=== PATIENT | female | born 1940 | race American Indian/Alaskan Native ===

== ENCOUNTER → 2016-08-18 | Outpatient (CLI) | payer OTHER ==
--- NOTE | 2016-08-18 17:14 | MA ---
Screening Digital Mammogram, With Tomosynthesis and iCAD August 18, 2016 Indication: Routine screening. History of right breast cancer with mastectomy in 2001. Technique: Standard digital CC projections were obtained of the left breast. Digital breast tomosyn thesis was performed in the MLO projection, with reconstruction at 1.0-mm slice thickness. Composite MLO views were reconstructed. This examination [facility] s [employer]. Comparison: December 2014, July 2011, and June 2010. Breast Density: Type B. Findings: CAD was reviewed. No suspicious microcalcifications, mass, or architectural distortion. Impression: Negative right mammogram. BI-RADS 1. Recommendation: Routine screening is recommended in one year. [facility] will send a result letter to the patient. Negative mammography should not preclude additional workup of a clinically suspicious finding. The patient's information is entered into a reminder system with a target due date for her next mammo gram.
== END ==
LOC: FIMAGING 12:13
DX: Z12.31 Encounter for screening mammogram for malignant neoplasm of breast (principal); Z85.3 Personal history of malignant neoplasm of breast
CPT/HCPCS: G0202-52

== ENCOUNTER 2017-05-28 16:52 | Inpatient (IN) | payer OTHER ==
--- NOTE | 2017-05-28 17:36 | CPEKG ---
Heart Rate: 102 RR Interval: 588 QRSD Interval: 90 QT Interval: 340 QTC Interval: 443 QRS [place]: 169 T Wave [place]: 69 EKG Severity - ABNORMAL ECG - EKG Impression: ATRIAL FIBRILLATION, V-RATE 80-147 EKG Impression: PROBABLE ANTEROSEPTAL INFARCT, AGE INDETERM Electronically Signed By: Jo-Ann Clolins 28-May-2017 21:12:31
--- NOTE | 2017-05-28 17:39 | EDPHY ---
H & P Time Seen by Provider: 05/28/17 17:23 HPI/ROS: CHIEF COMPLAINT: Fever, "not taking care of herself" HISTORY OF PRESENT ILLNESS: Patient is a 76-year-old female with a history of atrial fibrillation, diabetes and COPD who presents to the emergency department with fatigue and fever. The patient's boyfriend is giving much of the history. He states that she was well last Tuesday. He has been busy at work so he has not seen her for few days. They went to dinner on Tuesday night and she states she was "out of it." The next morning ()the patient had a stress test. She was noted to have a fever 101.2 but they continue with the test. That night the patient called boyfriend. She was not feeling well. She was fatigued with mild shortness of breath. She had a temperature to 103.2. She had mildly upset stomach but no vomiting. She took aspirin and her symptoms mildly improved. Today she was too sick to get out of bed. REVIEW OF SYSTEMS: My complete review of systems is negative except as mentioned in the HPI. Past Medical/Surgical History: Atrial fibrillation, COPD, diabetes, COPD, obesity, chronic respiratory failure Smoking Status: Never smoked Physical Exam: 36.4, 77/61, 93, 18, 94% on room air. Repeat blood pressure when I came into the room was 88/57 GENERAL: Patient is sleepy appearing. She wakes answer my questions. No acute distress. HEENT: Eyes normal to inspection, normal pharynx, no signs of dehydration. NECK: No thyromegaly, no lymphadenopathy, supple. RESPIRATORY: Clear to auscultation bilaterally, no rales, rhonchi or wheezing. CVS: Regular rate and rhythm, no rubs, murmurs, or gallops. ABDOMEN: Soft, nontender, nondistended, no organomegaly. BACK: Normal to inspection, no CVA tenderness. SKIN: Normal color, no rash, warm, dry. No pallor. EXTREMITIES: No pedal edema, no calf tenderness, no Homans sign or cords, no joint swelling. NEURO/PSYCH: The patient is sleepy but awakes to voice. Answers questions appropriately. Oriented. Normal mood and affect, normal motor sensory exam. No obvious cranial nerve deficit. Constitutional: Initial Vital Signs Temperature (C) 36.4 C 05/28/17 16:56 Heart Rate 93 05/28/17 16:56 Respiratory Rate 18 05/28/17 16:56 Blood Pressure 77/61 L 05/28/17 16:56 O2 Sat (%) 94 05/28/17 16:56 O2 Delivery Mode Nasal Cannula O2 (L/minute) 3 Allergies/Adverse Reactions: Beta-Blockers (Beta-Adrenergic Bloc Allergy (Verified 05/28/17 17:00) ANIMAL DANDER Allergy (Uncoded 10/18/13 17:13) OATS Allergy (Uncoded 10/18/13 17:13) SMOKE Allergy (Uncoded 10/18/13 17:13) Home Medications: Medication Instructions Recorded Albuterol [Proventil Inhaler] 2 puffs IH Q2 PRN 10/19/13 Furosemide [Lasix 20 MG (RX)] 20 mg PO DAILY 10/19/13 Losartan Potassium [Cozaar] 100 mg PO DAILY 10/19/13 Montelukast Sodium [Singulair 10 10 mg PO DAILY@1800 PRN 10/19/13 mg (RX)] metFORMIN HCL [Glucophage] 500 mg PO DAILY 10/19/13 Apixaban [Eliquis] 5 mg PO BID 05/28/17 Aspirin EC [Aspirin EC 81 mg (*)] 81 mg PO DAILY 05/28/17 Fluticasone/Vilanterol [Breo 1 puffs IN DAILY 05/28/17 Ellipta 100-25 Mcg INH] Hydralazine HCl [Hydralazine HCl] 100 mg PO TID 05/28/17 Levothyroxine Sodium 88 mcg PO DAILY 05/28/17 [Levothyroxine Sodium] Metoprolol Succinate [Metoprolol 150 mg PO DAILY 05/28/17 Succinate] Potassium Chloride [Potassium 20 meq PO DAILY 05/28/17 Chloride] Medical Decision Making - Diagnostics Imaging Results: Imaging Impressions Chest X-Ray 05/28/17 17:47 Impression: Cardiomegaly, without evidence of congestive heart failure or a focal infiltrate. Head CT 05/28/17 18:54 Impression: Senescent features, with no acute abnormality identified on this unenhanced CT evaluation. If there is further clinical concern regarding the patient's symptoms, MR imaging is suggested, if not otherwise contraindicated. Findings were discussed with IVAN MONTAGUE MD at 20:52, on 05/28/2017. Abdomen Ultrasound 05/28/17 19:16 Impression: 1. Fatty infiltration of the pancreas. 2. Gallbladder sludge, with no convincing evidence of cholelithiasis. There is no cholecystitis or bile duct dilatation. Findings were discussed with IVAN MONTAGUE MD at 20:59, on 05/28/2017. ED Course/Re-evaluation: In the emergency department I discussed possible etiologies with the patient. I answered all her questions. IV was placed. Laboratory studies were ordered. Chest x-ray and EKG was ordered. Patient was given normal saline 1,000 ml IV. I reviewed patient's previous record Atrial fibrillation at 102. Normal axis. Flipped T waves V1-V3 Patient's sodium was low 130. This is down from 139 in 2013. Patient's creatinine is elevated at 2.1. Mildly elevated total bilirubin at 3.1. Conjugated bilirubin elevated 2.5. AST and ALT mildly elevated at 69 and 77. Lipase normal. Lactic acid is 1.9. CXR: Cardiomegaly. No focal infiltrate. 1899: I rechecked the patient. She stated she had no shortness of breath chest pain. No abdominal pain. On repeat exam she had no right upper quadrant tenderness palpation. I discussed the need for urine sample with nursing staff. The patient states that she is able to give a urine sample. Head CT. 1914: 113/63, 90 I discussed the case with Dr. Henderson who will admit the patient. I also ordered a right upper quadrant ultrasound. He also recommended procalcitonin I discussed the case with Dr. Henderson. He document severe sepsis. He ordered NS 30 ml/kg, zosyn. I added repeat LA. 2054: Right upper quadrant ultrasound: Please refer the dictated report by Dr. Jensen. The gallbladder appears normal. There is no gallstones or sludge. The wall is normal. There is no thickened common bile duct. 2054: CT of the head: Please refer the dictated report by Dr. Jensen. I discussed the case with him. No acute disease noted. 2100: I discussed these findings with Dr. Henderson. Differential Diagnosis: My differential includes but is not limited to bacteremia, sepsis, chronic respiratory failure, pneumonia, bronchitis colectomy, sugar abnormality, urinary tract infection Critical Care Time: Patient required 35 minutes of critical care time. This was exclusive of any unbundled procedure. This was due to her altered mental status, hypotension, need for frequent rechecks, consultation with Radiology and Internal Medicine. - Data Points Laboratory Results: Laboratory Results 05/28/17 17:25 05/28/17 17:25 05/28/17 05/28/17 05/28/17 19:30 19:00 17:25 WBC RBC Hgb Hct MCV MCH MCHC RDW Plt Count MPV Neut % (Auto) Lymph % (Auto) [place] % (Auto) Eos % (Auto) Baso % (Auto) Nucleat RBC Rel Count Absolute Neuts (auto) Absolute Lymphs (auto) Absolute Monos (auto) Absolute Eos (auto) Absolute Basos (auto) Absolute Nucleated RBC Immature Gran % Seg Neutrophils % Band Neutrophils % Lymphocytes % Monocytes % Metamyelocytes % Myelocytes % Immature Gran # Absolute Seg Neuts Absolute Band Neuts Absolute Lymphocytes Absolute Monocytes Absolute Metamyelocyte Absolute Myelocytes RBC/WBC/PLT Morphology Toxic Vacuolation Platelet Estimate Smear Review By PT INR APTT VBG Lactic Acid Sodium 130 mEq/L L mEq/L (134-144) Potassium 3.4 mEq/L L mEq/L (3.5-5.2) Chloride 91 mEq/L L mEq/L (97-110) Carbon Dioxide 24 mEq/l mEq/l (22-31) Anion Gap 15 mEq/L mEq/L (8-16) BUN 63 mg/dL H mg/dL (7-23) Creatinine 2.1 mg/dL H mg/dL (0.6-1.0) Estimated GFR 23 Glucose 112 mg/dL H mg/dL (70-100) Calcium 8.7 mg/dL mg/dL (8.5-10.4) Total Bilirubin 3.1 mg/dL H mg/dL (0.1-1.4) Conjugated Bilirubin 2.5 mg/dL H mg/dL (0.0-0.5) Unconjugated Bilirubin 0.6 mg/dL mg/dL (0.0-1.1) AST 69 IU/L H IU/L (14-46) ALT 77 IU/L H IU/L (9-52) Alkaline Phosphatase 124 IU/L IU/L (38-126) Total Protein 5.9 g/dL L g/dL (6.3-8.2) Albumin 3.3 g/dL L g/dL (3.5-5.0) Lipase 55 IU/L IU/L (23-300) Procalcitonin 29.66 ng/mL H ng/mL (0.02-0.10) Urine Color REJ Urine Appearance TNP Urine pH TNP Ur Specific [place] TNP Urine Protein TNP Urine Ketones TNP Urine Blood TNP Urine Nitrate TNP Urine Bilirubin TNP Urine Urobilinogen TNP Ur Leukocyte Esterase TNP Urine Glucose TNP 05/28/17 05/28/17 05/28/17 17:25 17:25 17:25 WBC 6.99 10^3/uL 10^3/uL (3.80-9.50) RBC 4.52 10^6/uL 10^6/uL (4.18-5.33) Hgb 14.6 g/dL g/dL (12.6-16.3) Hct 39.6 % % (38.0-47.0) MCV 87.6 fL fL (81.5-99.8) MCH 32.3 pg pg (27.9-34.1) MCHC 36.9 g/dL H g/dL (32.4-36.7) RDW 14.7 % % (11.5-15.2) Plt Count 80 10^3/uL L 10^3/uL (150-400) MPV 13.3 fL H fL (8.7-11.7) Neut % (Auto) Not Reported Lymph % (Auto) Not Reported [place] % (Auto) Not Reported Eos % (Auto) Not Reported Baso % (Auto) Not Reported Nucleat RBC Rel Count 0.0 % % (0.0-0.2) Absolute Neuts (auto) Not Reported Absolute Lymphs (auto) Not Reported Absolute Monos (auto) Not Reported Absolute Eos (auto) Not Reported Absolute Basos (auto) Not Reported Absolute Nucleated RBC 0.00 10^3/uL 10^3/uL (0-0.01) Immature Gran % Not Reported Seg Neutrophils % 22 % % Band Neutrophils % 65 % % Lymphocytes % 6 % % Monocytes % 1 % % Metamyelocytes % 4 % % Myelocytes % 2 % % Immature Gran # Not Reported Absolute Seg Neuts 1.54 10^/uL L 10^/uL (1.70-6.50) Absolute Band Neuts 4.54 10^3/uL H 10^3/uL (0.00-0.70) Absolute Lymphocytes 0.42 10^3/uL L 10^3/uL (1.00-3.00) Absolute Monocytes 0.07 10^3/uL L 10^3/uL (0.30-0.80) Absolute Metamyelocyte 0.28 10^3/mL H 10^3/mL (0.00-0.00) Absolute Myelocytes 0.14 10^3/mL H 10^3/mL (0.00-0.00) RBC/WBC/PLT Morphology NORMAL (NORMAL) Toxic Vacuolation PRESENT H Platelet Estimate DECREASED L (ADEQ) Smear Review By Pending PT 19.2 SEC H SEC (12.0-15.0) INR 1.61 H (0.83-1.16) APTT 37.6 SEC SEC (23.0-38.0) VBG Lactic Acid 1.9 mmol/L mmol/L (0.7-2.1) Sodium Potassium Chloride Carbon Dioxide Anion Gap BUN Creatinine Estimated GFR Glucose Calcium Total Bilirubin Conjugated Bilirubin Unconjugated Bilirubin AST ALT Alkaline Phosphatase Total Protein Albumin Lipase Procalcitonin Urine Color Urine Appearance Urine pH Ur Specific [place] Urine Protein Urine Ketones Urine Blood Urine Nitrate Urine Bilirubin Urine Urobilinogen Ur Leukocyte Esterase Urine Glucose Medications Given: Discontinued Medications Sodium Chloride (Ns) 1,000 mls @ 0 mls/hr IV ONCE ONE PRN Reason: Wide Open Stop: 05/28/17 17:49 Last Admin: 05/28/17 17:56 Dose: 1,000 mls Departure - Departure Disposition: [facility] Inpatient Acute Clinical Impression: Renal insufficiency, Hyponatremia, Severe sepsis Fever Qualifiers: Fever type: unspecified Qualified Code(s): R50.9 - Fever, unspecified Condition: Good
[2017-05-28] MEDS ORDERED: NS 1,000 ML IV ONE (17:48)
[2017-05-28 18:08] LABS: PLATELET COUNT 80 10^3/uL (150-400)
[2017-05-28 18:29] LABS: INR 1.61 (0.83-1.16); PROTIME(PATIENT) 19.2 SEC (12.0-15.0)
[2017-05-28] MEDS ORDERED: FUROSEMIDE 40 MG/4 ML VIAL IVP ONE (20:40)
[2017-05-28] MEDS ORDERED: FUROSEMIDE 20 MG/2 ML VIAL IVP ONE (20:41)
[2017-05-28] MEDS ORDERED: NS 2,400 ML IV ONE ×2 (20:45→20:49)
[2017-05-28] MEDS ORDERED: ACETAMINOPHEN 325 MG TAB PO PRN (21:01)
[2017-05-28] MEDS ORDERED: ONDANSETRON 4 MG/2 ML VIAL IVP PRN (21:01)
[2017-05-28] MEDS ORDERED: ONDANSETRON DISINTEGRATING 4 MG TAB PO PRN (21:01)
[2017-05-28] MEDS ORDERED: oxyCODONE IR 5 MG TAB PO PRN (21:01)
[2017-05-28] MEDS ORDERED: D50W 25 GM/50 ML SYR IVP PRN (21:18)
[2017-05-28] MEDS ORDERED: ALBUTEROL 200 PUFFS/18 GM MDI IH PRN (21:18)
[2017-05-28] MEDS ORDERED: D10W 250 ML PRN HYPOGLYCEMIA IV (21:30)
[2017-05-28] MEDS ORDERED: PIPERACILLIN/TAZO 4.5 GM/DEX 100 ML IV SCH (21:30)
[2017-05-28] MEDS ORDERED: VANCOMYCIN 1.25 GM in D5W 250 ML IV SCH (21:30)
--- NOTE | 2017-05-28 21:49 | GHP ---
[f rep st] HISTORY AND PHYSICAL DATE OF ADMISSION: 05/28/2017 CHIEF COMPLAINT: Fevers, altered mental status. HISTORY OF PRESENT ILLNESS: This is a 76-year-old female, recently started on Eliquis, who presents with about 5 days of fevers. She is accompanied by her boyfriend. He last saw her normal about 1 we ek ago. He went out to dinner with her on Tuesday, and she was not herself. She was tired, febril e. She went in to have an echocardiogram yesterday and was noted to have a fever of 101. Had her ec hocardiogram at that point. He then took her home, and she had a fever to 103. He almost brought he r into the emergency room but did not. He brought her in today as she was more lethargic, very confu sed. She is not complaining of any focal pain. No headache, no neck pain, no abdominal pain, no new rash on her skin, no diarrhea. She has had a little bit of nausea over the past few days. PAST MEDICAL/SURGICAL HISTORY: 1. Atrial fibrillation. She has taken 2 doses of Eliquis so far. 2. Asthma/COPD. 3. Diabetes mellitus. 4. Obesity. 5. Chronic respiratory failure on 2 L of oxygen. 6. Arthritis. 7. Hypertension. 8. Hypothyroid. 9. Breast cancer, status post mastectomy. 10. Bilateral hernia repair. MEDICATIONS: Please see medication reconciliation. ALLERGIES: Beta-blockers, animal dander, oats, and smoke. FAMILY HISTORY: Reviewed and noncontributory. SOCIAL HISTORY: She is accompanied by her boyfriend. She occasionally drinks alcohol. REVIEW OF SYSTEMS: A 10-point review of systems is conducted and is negative except per HPI. PHYSICAL EXAM: VITAL SIGNS: Initial blood pressure is 77/61, heart rate 93, respiration rate 18, sa turating at 94% on 2 L, temperature is 36.4. GENERAL: The patient is a pleasant female who appears quite somnolent but is easily aroused, in no acute distress. HEENT: Shows her to be normocephalic, atraumatic. She has no pharyngeal ulcerations or petechiae. She has no conjunctival hemorrhages. S he has no pharyngeal erythema. She has no cervical lymphadenopathy. CARDIOVASCULAR: Shows her to h ave regular rate and rhythm. There are no murmurs, rubs, or gallops. PULMONARY: Shows her to be in no respiratory distress. Her lungs are clear to auscultation bilaterally. ABDOMEN: Soft. She is mildly tender to palpation on the right side. SKIN: Shows no rash. I viewed all of her skin. She has no clear joint effusions. NEUROLOGIC: Shows her to be somnolent, but she is alert and oriented. She is moving all extremities. PSYCHIATRIC: Shows normal mood and affect. LABS: CBC shows platelets of 80. INR is 1.6. Lactate is 1.9. Sodium 130, creatinine is 2.1. Proc alcitonin is 29. Urinalysis was not performed. I have reordered this. DATA: 1. I discussed this with Dr. Collins. We will admit to the step-down unit. 2. Ultrasound of her right upper quadrant shows no cholecystitis or bile duct dilation. 3. Head CT shows nothing acute. 4. Chest x-ray, which I personally viewed and interpreted, shows cardiomegaly. There are no focal i nfiltrates. 5. EKG shows atrial fibrillation. She has T-wave inversions in V2 and V3. She has a Q wave in lead III. IMPRESSION AND PLAN: A 76-year-old female presents with ill-defined infection. 1. Sepsis: She has not yet completed her full bolus of normal saline. She does continue to be hypo tensive. We will follow sepsis protocol and place central line. Start pressors if necessary. She h as not currently declared herself as septic shock, however. There is no clear source, but this is I presume diagnosis. Other etiologies include central obstructive or cardiovascular, though with an el evated procalcitonin encephalopathy, I am more suspicious of sepsis. 2. Suspected cold infection: No clear source. Given her elevated INR, low platelets, elevated proc alcitonin, I am concerned that she does have a bloodstream infection. Elevated bilirubin would imply gallbladder; however, ultrasound was negative. Given her hypotension, I think we should scan her ch est as well as her abdomen without contrast given her renal failure. I have ordered an echocardiogra m to evaluate for endocarditis. I will empirically start vancomycin and Zosyn pending her blood cult ures. Urine has not been drawn yet though I do not detect any pyelonephritis on my exam. 3. Acute encephalopathy: Due to the above. Follow with treatment. 4. Acute kidney injury: Suspect prerenal. We will hydrate her aggressively and recheck. 5. Thrombocytopenia and elevated INR: Concern for mild disseminated intravascular coagulation. We will check a full DIC panel. 6. Bandemia: Suspect that she will have a true white count tomorrow. 7. Hyponatremia: Suspect hypovolemic. IV fluids. 8. Elevated LFTs: We have never checked these in the past. Given her obesity and diabetes, I would not be surprised if she has fatty liver though not sure that explains her bilirubin. 9. Chronic respiratory failure: Continue her home O2. 10. Atrial fibrillation: She has just been started on Eliquis, continue this. 11. Hypertension: She is currently hypotensive. We will hold her antihypertensives. 12. Diabetes: We will follow blood sugars and give her low-dose sliding scale insulin for now. 13. Code status is full. /[id number]/MODL
[2017-05-28] MEDS: PIPERACILLIN/TAZO 3.375 GM/DEX 50 ML IV SCH (21:53)
[2017-05-28] MEDS: NS 1,000 ML IV SCH (23:33)
[2017-05-29 00:06] LABS: INR 1.64 (0.83-1.16); PROTIME(PATIENT) 19.5 SEC (12.0-15.0)
[2017-05-29 00:10] LABS: PLATELET COUNT 73 10^3/uL (150-400)
--- NOTE | 2017-05-29 00:47 | PDMN ---
Medical Necessity Medical necessity: C/M review: est. > 2 MN LOS for eval and TX of acute - sepsis, suspected cold infection, encephalopathy, kidney injury, thrombocytopenia, hyponatremia, elevated LFTs requiring planned echocardiogram, ongoing IV Zosyn, IV Vancomycin, IV fluids, pulse oximetry in SDU, comorbid chronic respiratory failure on O2, atrial fibrillation, hypertension, diabetes, obesity, asthma/COPD, hypothyroidism per H/P.
[2017-05-29] MEDS: PIPERACILLIN/TAZO 3.375 GM/DEX 50 ML IV SCH ×4 (03:24→22:11)
--- NOTE | 2017-05-29 05:00 | HOSPPROG ---
Hospitalist Progress Note Assessment/Plan: Hospitalist Night Float Note Requested by Dr. Henderson to follow up on CT chest/abd/pelvis imaging. Patient admitted with sepsis of unclear etiology. still awaiting UA as initial sample was insufficient for testing. Patient started on Vanco/Zosyn. Laboratory studies including DIC panel ordered for thrombocytopenia and abnormal coags. fibrinogen noted to be WNL but ddimer elevated. Pt without evidence of active bleeding at this time, currently on anticoagulation with eliquis. question of alcohol consumption, lfts also noted to be elevated. CT chest/abd/pelvis - notable for 4.8cm ascending thoracic aortic aneurysm. abd /pelvis noting chlelithiasis, chronic appearing seroma related to TRAM flap procedure without evidence of infectioin. These were noncontrast studies 2/2 pt renal function. Plan - continue eliquis at this time. repeat DIC panel in AM along with AM labs. awaiting UA pt receiving IVF resuscitation. blood cultures pending. continue antibiotics. Objective: Vital Signs Temp Pulse Resp BP Pulse Ox 37.2 C 68 18 99/61 L 100 05/29/17 04:03 05/29/17 04:03 05/29/17 04:03 05/29/17 04:03 05/29/17 04:03 Laboratory Results 05/28/17 23:15 05/27/17 05/28/17 05/29/17 05:59 05:59 05:59 Intake Total 5400 Balance 5400 PT 19.5 SEC (12.0-15.0) H 05/28/17 23:15 INR 1.64 (0.83-1.16) H 05/28/17 23:15 ICD10 Worksheet Patient Problems: Problems Problem Status Onset Fever Acute Hyponatremia Acute Renal insufficiency Acute Severe sepsis Acute Ankle fracture, left Acute Atrial fib/flutter, transient Acute Fracture of phalanx of left foot, closed Acute
[2017-05-29 05:47] LABS: INR 1.45 (0.83-1.16); PROTIME(PATIENT) 17.6 SEC (12.0-15.0)
[2017-05-29 05:52] LABS: PLATELET COUNT 61 10^3/uL (150-400)
[2017-05-29 05:53] LABS: PLATELET COUNT 61 10^3/uL (150-400)
[2017-05-29] MEDS: Fluticasone/Vilanterol [Breo Ellipta 100-25 Mcg Inh] 1 PUFFS IH SCH (09:02)
[2017-05-29] MEDS: INSULIN LISPRO 100 UNIT/ML SC SCH ×3 (09:14→19:28)
[2017-05-29] MEDS: ASPIRIN EC 81 MG TAB PO SCH ×2 (09:14→11:55)
[2017-05-29] MEDS: LEVOTHYROXINE 88 MCG TAB PO SCH (09:14)
[2017-05-29] MEDS: NS 1,000 ML IV SCH (09:15)
--- NOTE | 2017-05-29 10:14 | HOSPPROG ---
Hospitalist Progress Note Assessment/Plan: DIAGNOSES: -acute septic shock w organ failure is suspected -no obvious source of infection; pyuria of uncertain significance -acute kidney injury -acute encephalopathy -coagulation abnormalities may be partly due to her oral anticoagulant but the high d dimer raises ? 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 for CAD SUBJ: states feels a bit stronger but still quite weak no new localizing sxs no chills or sweats OBJ: vitals:no fever here so far, BPs notably better card monitor: NSR exam: alert oriented looks quite weak skin warm dry good color resps easy lungs clear heart regular abd nl no edema joints nl mentation now normal labs reviewed CXs no growth to date Objective: Vital Signs Temp Pulse Resp BP Pulse Ox 37.2 C 78 17 122/85 H 98 05/29/17 04:03 05/29/17 06:00 05/29/17 06:00 05/29/17 06:00 05/29/17 06:00 Laboratory Results 05/29/17 05:20 05/29/17 05:20 05/28/17 05/29/17 05/30/17 06:59 06:59 06:59 Intake Total 5400 Output Total 100 Balance 5300 PT 17.6 SEC (12.0-15.0) H 05/29/17 05:20 INR 1.45 (0.83-1.16) H 05/29/17 05:20 - Time Spent With Patient Time Spent with Patient: greater than 35 minutes Time Spent with Patient: Greater than 35 minutes spent on this patients care, greater than 50% of time spent counseling, educating, and coordinating care regarding the above mentioned plan. ICD10 Worksheet Patient Problems: Problems Problem Status Onset Fever Acute Hyponatremia Acute Renal insufficiency Acute Severe sepsis Acute Ankle fracture, left Acute Atrial fib/flutter, transient Acute Fracture of phalanx of left foot, closed Acute
[2017-05-29] MEDS: APIXABAN 5 MG TAB PO SCH ×2 (11:54→20:57)
--- NOTE | 2017-05-29 11:55 | ASMTCMCOM ---
CM Note CM Note Notes: 76 year old female admitted for sepsis-cold infection?, hyponatremia, renal insufficiency. She has a hx of asthma/COPD, DM, Obesity, Respiratory failure-2 lits O2, HTN, Hypothyroid, Afib, Hypotensive, Bilateral hernia repair. RN reports that patient is very weak. Therapies need to evaluate for discharge needs. CM to follow Date Signed: 05/29/2017 11:55 AM Electronically Signed By:Eva Matthews LCSW
[2017-05-29] MEDS ORDERED: POTASSIUM CL 20 MEQ TAB PO ONE ×2 (12:34→16:30)
--- NOTE | 2017-05-29 14:37 | ECHO ---
[email or web address] [address] [address] Main: [phone] Fax: Transthoracic Echocardiogram Name: RUTH BATISTA MR#: [id number] Study Date: 05/29/2017 Study Time: 10:27 AM Date of : 1940 Age: 76 year(s) Height: 154.9 cm (61 in.) Weight: 79.38 kg (175 lb.) BSA: 1.78 m2 Gender: Female Examination: Echo Indication: Bacterial Endocarditis Image Quality: Technically Difficult Contrast: Requested by: Navneet Henderson BP: 114 mmHg/81 mmHg Heart Rate: Rhythm: Indication: Bacterial Endocarditis Procedure Staff Varnisher: Emelyn Lopez Reading Physician: Konrad Prasad Requesting Provider: Conclusions: Mildly dilated left ventricle. Mildly reduced systolic LV function. EF is 49 %. Moderately reduced RV function. The right atrium is moderately dilated. Mild mitral valve regurgitation is present. Mobile echogenic structure observe on LV side of the Posterior leaflet. Most likely calcium on a redundant chordae, however can not rule out small vegetation due to suboptimal images.. Mild tricuspid regurgitation is present. Right Ventricular systolic pressure is measured at 46 mmHg. Dilated ascending aorta measuring 4.3 cm. Measurements: Chambers Valvular Assessment AV/MV Valvular Assessment TV/PV Normal Normal Normal Name Value Range Name Value Range Name Value Range IVSd (2D): 1.0 cm (0.6 cm-1.1 AV meanP mmHg ( - ) TR Vmax: 2.78 mm/s ( - ) cm) MV E Vmax: 1.17 m/s ( - ) TR PGmax: 31 mmHg ( - ) LVDd (2D): 5.1 cm (3.9 cm-5.3 MV meanP mmHg ( - ) syst. PAP: 46 mmHg ( - ) cm) LVDs (2D): 3.9 cm (2.1 cm-4 cm) LVPWd (2D): 1.0 cm ( - ) LVEF (BP): 49 % (>=55 %) RVDd(2D): 4.0 cm (1.9 cm-3.8 cmmm) Continued Measurements: Chambers Valvular Assessment AV/MV Valvular Assessment TV/PV Patient: RUTH BATISTA Study Date: 05/29/2017 Page 1 of 2 10:27 AM Name Value Name Value Name Value LADs Lon.1 cm MV VTI: 23.20 cm CVP (est.): 15 mmHg LA Area: 15.5 cm2 LA Volume: 34 ml LA Volume Index: 19.1 ml/m2 RA Area: 37.5 cm2 Additional Vessels Name Value Ao Ascendin.3 cm IVC inspiratory: 2.0 cm Findings: Left Ventricle: Mildly dilated left ventricle. Mildly reduced systolic LV function. EF is 49 %. The basal inferoseptal, basal inferior, mid inferoseptal, mid inferior and apical inferior wall segments are hypokinetic. Right Ventricle: Upper normal size right ventricle. Moderately reduced RV function. There is a moderator band noted in the right ventricle. Hypokinesis of the right ventricle apex. Left Atrium: The left atrium is normal in size. Right Atrium: The right atrium is moderately dilated. Mitral Valve: The mitral valve is normal in appearance and function. Mild mitral valve regurgitation is present. Mobile echogenic structure observe on LV side of the Posterior leaflet. Most likely calcium on a redundant chordae, however can not rule out small vegetation due to suboptimal images.. Aortic Valve: The aortic valve is normal in appearance and function. There is no aortic valve regurgitation. No aortic valve stenosis is present. There is no aortic valve vegetation. Tricuspid Valve: The tricuspid valve is normal in appearance and function. Mild tricuspid regurgitation is present. No tricuspid valve vegetation. Right Ventricular systolic pressure is measured at 46 mmHg. Pulmonic Valve: Pulmonary valve not well visualized. Aorta: Dilated ascending aorta measuring 4.3 cm. IVC: There is less than 50% respiratory excursion. Pericardium: No pericardial effusion. There is pericardial fat. (No Signature Object) Wall Motion Scores Patient: RUTH BATISTA Study Date: 05/29/2017 Page 2 of 2 10:27 AM [id number]
--- NOTE | 2017-05-29 14:37 | ECHO ---
[email or web address] [address] [address] Main: [phone] Fax: Transthoracic Echocardiogram Name: RUTH BATISTA MR#: [id number] Study Date: 05/29/2017 Study Time: 10:27 AM Date of : 1940 Age: 76 year(s) Height: 154.9 cm (61 in.) Weight: 79.38 kg (175 lb.) BSA: 1.78 m2 Gender: Female Examination: Echo Indication: Bacterial Endocarditis Image Quality: Technically Difficult Contrast: Requested by: Navneet Henderson BP: 114 mmHg/81 mmHg Heart Rate: Rhythm: Indication: Bacterial Endocarditis Procedure Staff Cloth Grader Supervisor: Emelyn Lopez Reading Physician: Konrad Prasad Requesting Provider: Conclusions: Mildly dilated left ventricle. Mildly reduced systolic LV function. EF is 49 %. Moderately reduced RV function. The right atrium is moderately dilated. Mild mitral valve regurgitation is present. Mobile echogenic structure observe on LV side of the Posterior leaflet. Most likely calcium on a redundant chordae, however can not rule out small vegetation due to suboptimal images.. Mild tricuspid regurgitation is present. Right Ventricular systolic pressure is measured at 46 mmHg. Dilated ascending aorta measuring 4.3 cm. Measurements: Chambers Valvular Assessment AV/MV Valvular Assessment TV/PV Normal Normal Normal Name Value Range Name Value Range Name Value Range IVSd (2D): 1.0 cm (0.6 cm-1.1 AV meanP mmHg ( - ) TR Vmax: 2.78 mm/s ( - ) cm) MV E Vmax: 1.17 m/s ( - ) TR PGmax: 31 mmHg ( - ) LVDd (2D): 5.1 cm (3.9 cm-5.3 MV meanP mmHg ( - ) syst. PAP: 46 mmHg ( - ) cm) LVDs (2D): 3.9 cm (2.1 cm-4 cm) LVPWd (2D): 1.0 cm ( - ) LVEF (BP): 49 % (>=55 %) RVDd(2D): 4.0 cm (1.9 cm-3.8 cmmm) Continued Measurements: Chambers Valvular Assessment AV/MV Valvular Assessment TV/PV Patient: RUTH BATISTA Study Date: 05/29/2017 Page 1 of 2 10:27 AM Name Value Name Value Name Value LADs Lon.1 cm MV VTI: 23.20 cm CVP (est.): 15 mmHg LA Area: 15.5 cm2 LA Volume: 34 ml LA Volume Index: 19.1 ml/m2 RA Area: 37.5 cm2 Additional Vessels Name Value Ao Ascendin.3 cm IVC inspiratory: 2.0 cm Findings: Left Ventricle: Mildly dilated left ventricle. Mildly reduced systolic LV function. EF is 49 %. The basal inferoseptal, basal inferior, mid inferoseptal, mid inferior and apical inferior wall segments are hypokinetic. Right Ventricle: Upper normal size right ventricle. Moderately reduced RV function. There is a moderator band noted in the right ventricle. Hypokinesis of the right ventricle apex. Left Atrium: The left atrium is normal in size. Right Atrium: The right atrium is moderately dilated. Mitral Valve: The mitral valve is normal in appearance and function. Mild mitral valve regurgitation is present. Mobile echogenic structure observe on LV side of the Posterior leaflet. Most likely calcium on a redundant chordae, however can not rule out small vegetation due to suboptimal images.. Aortic Valve: The aortic valve is normal in appearance and function. There is no aortic valve regurgitation. No aortic valve stenosis is present. There is no aortic valve vegetation. Tricuspid Valve: The tricuspid valve is normal in appearance and function. Mild tricuspid regurgitation is present. No tricuspid valve vegetation. Right Ventricular systolic pressure is measured at 46 mmHg. Pulmonic Valve: Pulmonary valve not well visualized. Aorta: Dilated ascending aorta measuring 4.3 cm. IVC: There is less than 50% respiratory excursion. Pericardium: No pericardial effusion. There is pericardial fat. (No Signature Object) Wall Motion Scores Patient: RUTH BATISTA Study Date: 05/29/2017 Page 2 of 2 10:27 AM [id number]
--- NOTE | 2017-05-29 14:37 | ECHO ---
[email or web address] [address] [address] Main: [phone] Fax: Transthoracic Echocardiogram Name: RUTH BATISTA MR#: [id number] Study Date: 05/29/2017 Study Time: 10:27 AM Date of : 1940 Age: 76 year(s) Height: 154.9 cm (61 in.) Weight: 79.38 kg (175 lb.) BSA: 1.78 m2 Gender: Female Examination: Echo Indication: Bacterial Endocarditis Image Quality: Technically Difficult Contrast: Requested by: Navneet Henderson BP: 114 mmHg/81 mmHg Heart Rate: Rhythm: Indication: Bacterial Endocarditis Procedure Staff Sports Physical Therapist: Emelyn Lopez Reading Physician: Konrad Prasad Requesting Provider: Conclusions: Mildly dilated left ventricle. Mildly reduced systolic LV function. EF is 49 %. Moderately reduced RV function. The right atrium is moderately dilated. Mild mitral valve regurgitation is present. Mobile echogenic structure observe on LV side of the Posterior leaflet. Most likely calcium on a redundant chordae, however can not rule out small vegetation due to suboptimal images.. Mild tricuspid regurgitation is present. Right Ventricular systolic pressure is measured at 46 mmHg. Dilated ascending aorta measuring 4.3 cm. Measurements: Chambers Valvular Assessment AV/MV Valvular Assessment TV/PV Normal Normal Normal Name Value Range Name Value Range Name Value Range IVSd (2D): 1.0 cm (0.6 cm-1.1 AV meanP mmHg ( - ) TR Vmax: 2.78 mm/s ( - ) cm) MV E Vmax: 1.17 m/s ( - ) TR PGmax: 31 mmHg ( - ) LVDd (2D): 5.1 cm (3.9 cm-5.3 MV meanP mmHg ( - ) syst. PAP: 46 mmHg ( - ) cm) LVDs (2D): 3.9 cm (2.1 cm-4 cm) LVPWd (2D): 1.0 cm ( - ) LVEF (BP): 49 % (>=55 %) RVDd(2D): 4.0 cm (1.9 cm-3.8 cmmm) Continued Measurements: Chambers Valvular Assessment AV/MV Valvular Assessment TV/PV Patient: RUTH BATISTA Study Date: 05/29/2017 Page 1 of 2 10:27 AM Name Value Name Value Name Value LADs Lon.1 cm MV VTI: 23.20 cm CVP (est.): 15 mmHg LA Area: 15.5 cm2 LA Volume: 34 ml LA Volume Index: 19.1 ml/m2 RA Area: 37.5 cm2 Additional Vessels Name Value Ao Ascendin.3 cm IVC inspiratory: 2.0 cm Findings: Left Ventricle: Mildly dilated left ventricle. Mildly reduced systolic LV function. EF is 49 %. The basal inferoseptal, basal inferior, mid inferoseptal, mid inferior and apical inferior wall segments are hypokinetic. Right Ventricle: Upper normal size right ventricle. Moderately reduced RV function. There is a moderator band noted in the right ventricle. Hypokinesis of the right ventricle apex. Left Atrium: The left atrium is normal in size. Right Atrium: The right atrium is moderately dilated. Mitral Valve: The mitral valve is normal in appearance and function. Mild mitral valve regurgitation is present. Mobile echogenic structure observe on LV side of the Posterior leaflet. Most likely calcium on a redundant chordae, however can not rule out small vegetation due to suboptimal images.. Aortic Valve: The aortic valve is normal in appearance and function. There is no aortic valve regurgitation. No aortic valve stenosis is present. There is no aortic valve vegetation. Tricuspid Valve: The tricuspid valve is normal in appearance and function. Mild tricuspid regurgitation is present. No tricuspid valve vegetation. Right Ventricular systolic pressure is measured at 46 mmHg. Pulmonic Valve: Pulmonary valve not well visualized. Aorta: Dilated ascending aorta measuring 4.3 cm. IVC: There is less than 50% respiratory excursion. Pericardium: No pericardial effusion. There is pericardial fat. (No Signature Object) Wall Motion Scores Patient: RUTH BATISTA Study Date: 05/29/2017 Page 2 of 2 10:27 AM [id number]
[2017-05-29] MEDS ORDERED: MONTELUKAST SODIUM 10 MG TAB PO PRN (18:00)
--- NOTE | 2017-05-30 00:47 | GCON ---
[f rep st] CONSULTATION DATE OF CONSULTATION: 05/29/2017 REASON FOR CONSULTATION: Intensive care unit evaluation and management of sepsis. HISTORY: The patient is a very pleasant 76-year-old who was admitted yesterday with fevers and alter ed mental status. She apparently had been [facility] was seen for an echocardiogram the day prior to admission and was found to have a temperature there of 101. On returning home, she had fevers as high as 103. On the day of admission, she was m ore lethargic, weak and confused, and was thus brought to the emergency department by her boyfriend. She apparently had no localizing symptoms on admission. White blood count was elevated. Urinalysis showed pyuria, but no urine culture was done. Blood cultures were done and are pending. She was st arted on the sepsis protocol and admitted to the intensive care unit as a step-down patient. She has had multiple radiologic studies, including CT scans of the head, chest, abdomen and pelvis, abdomina l ultrasound, and an echocardiogram done, all without any findings consistent with acute infection. She denies any abdominal pain or flank pain. She denies any significant urinary tract symptoms. She has been treated with intravenous fluids. She is on Zosyn and vancomycin. Compared to her admission yesterday, she is feeling better, more alert. PAST MEDICAL HISTORY: She has a history of "COPD," although was never a smoker. She also has a hist ory of borderline congestive heart failure and atrial fibrillation. She was recently started on Eliq uis for this. There is a history of diabetes, obesity, hypoxemia on 2 L of oxygen at night, systemic hypertension, hypothyroidism on replacement, breast cancer for which she has had a mastectomy. Outpatient medications on admission included baby aspirin, montelukast, metoprolol, levothyroxine, Br eo Ellipta, potassium, hydralazine, p.r.n. albuterol, Eliquis, Cozaar, Lasix, and metformin. SOCIAL HISTORY: The patient lives in [place] with her son. She is a never-smoker. Significant alco hol is denied. She previously worked as a professor at [employer]. She has been [place] for 20 ye ars. She is originally from [place]. FAMILY HISTORY: Noncontributory. REVIEW OF SYSTEMS: A 10-point review of systems is negative, except as mentioned in the HPI. PHYSICAL EXAMINATION: GENERAL: A pleasant woman who is lying in bed and appears comfortable. She a ppears somewhat weak. She is oriented and appropriate. Blood pressure is 140/80, heart rate 78, wit h atrial fibrillation on the monitor. Respiratory rate is 16. On 2 L, saturations are 98%. She is afebrile. HEENT: Unremarkable for lymphadenopathy or thyromegaly. There is no jugular venous diste ntion. There is no pharyngitis. CHEST: Clear. Breath sounds are somewhat diminished bilaterally w ith a slightly prolonged expiratory phase. There are no wheezes, rales, or rhonchi. HEART: Irregul ar. There is a soft systolic murmur. There are no obvious gallops. P2 appears mildly increased. A BDOMEN: Overweight, soft, nontender. Bowel sounds are present. No Peter catheter is in place. EXT REMITIES: Unremarkable for edema. There are no cords or tenderness. NEUROLOGIC: Within normal watt its. She moves all extremities equally. Sensation is grossly intact. Cranial nerves appear normal. She is oriented and responds appropriately to questions. DATA BASE: Radiologic studies are as outlined above and do not show any source of acute infection. White blood cell count is 4600, down from 7000 on admission. Hematocrit is 34, down from 39. Platel ets are 61,000. There is a significant shift to the left, with 77 bands. PT is 17.6, PTT 36. Venou s lactate is 1.3 yesterday, down from 1.9 on admission. Sodium is 137, potassium 2.9, BUN 56, with a creatinine 1.7. Glucose is 70. Calcium is 7.5, bilirubin 2.5 with mildly elevated liver function s tudies at 47 and 63, respectively. Albumin is 2.2. Procalcitonin was elevated, as was C-reactive pr otein. ASSESSMENT: 1. Sepsis. The patient presented with altered mental status and hypotension, fevers, and a left naty ft. There is no clear source, except for her urine. She did have pyuria on admission; however, this may be asymptomatic bacteriuria, not of clinical significance. Unfortunately, no culture was done. Blood cultures have been obtained. Her liver function studies and bilirubin are both mildly elevate d; however, there is no evidence on abdominal CT scan or abdominal ultrasound of acute cholecystitis or ascending cholangitis. However, both urine and biliary tract still need to be considered as possi ble sources. She is on broad-spectrum antibiotics, which should cover infections in either location. 2. Chronic obstructive pulmonary disease. This would be somewhat unusual in a patient without a smo segun history. She states that this may have come from pollution growing up in the [place] area? She also has a history of some chronic mild asthma, and remodeling of airways may be present. In an y case, she is having no acute pulmonary symptoms or an exacerbation of her underlying lung disease. She is followed at [facility] for this. 3. Heart disease. She does have a history of heart disease with recent atrial fibrillation, started on Eliquis anticoagulation. Cardiac echo shows wall motion abnormalities, as well as a low normal l eft ventricular ejection fraction and evidence of pulmonary hypertension and mild right heart dysfunc tion on cardiac echo. 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 No acute decompe nsation, evidence of acute ischemic disease, or other issues are identified. 4. History of other medical problems including systemic hypertension, type 2 diabetes, etc., no acut e issues are identified. 5. Renal insufficiency. She comes in with elevated BUN and creatinine, improving with hydration. T his likely represents volume depletion associated with her infection and sepsis on admission and prob able poor oral intake for a number days prior to admission. 6. Abnormal mental status secondary to #1, significantly improved. CT scan of the head was negative . PLAN AND RECOMMENDATIONS: The patient will be kept in the intensive care unit as step-down status. Intravenous fluids will be continued. Antibiotics will be continued. Her usual outpatient medicatio ns including asthma medications, Lasix, and Synthroid will be continued. Metformin will be held. In sulin will be covered by sliding scale. Cultures will be awaited. Laboratory will be followed. Further plans and recommendations will be made based on her progress over the next 12-24 hours. /[id number]/MODL
[2017-05-30] MEDS: PIPERACILLIN/TAZO 3.375 GM/DEX 50 ML IV SCH ×4 (03:53→23:59)
[2017-05-30] MEDS: INSULIN LISPRO 100 UNIT/ML SC SCH ×3 (08:13→18:28)
[2017-05-30] MEDS: Fluticasone/Vilanterol [Breo Ellipta 100-25 Mcg Inh] 1 PUFFS IH SCH (09:02)
[2017-05-30] MEDS: LEVOTHYROXINE 88 MCG TAB PO SCH (09:07)
[2017-05-30] MEDS: ASPIRIN EC 81 MG TAB PO SCH (09:07)
[2017-05-30] MEDS: APIXABAN 5 MG TAB PO SCH ×2 (10:43→21:38)
[2017-05-30] MEDS ORDERED: PROTOCOL POTASSIUM 1 DOSE MISC PRN (11:04)
--- NOTE | 2017-05-30 13:47 | HOSPPROG ---
Hospitalist Progress Note Assessment/Plan: DIAGNOSES: -acute severe sepsis w organ failure is suspected -no obvious source of infection; pyuria of uncertain significance -acute kidney injury -acute encephalopathy -coagulation abnormalities may be partly due to her oral anticoagulant but the high d dimer raises ? 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 There is still not a definitive finding to identify cause of her illness but infection w severe sepsis remains main suspect PLANS: -continue empiric abx -dvt prophylaxis covered by apixiban -follow cx's -replace K -should have f/u over time for aneurysm, pulm HTN, and be on tank terminal gauger preventive care for CAD SUBJ: states feels a bit stronger and now able to walk but still quite weak has begun to eat small amount of food but still poor appetite no new localizing sxs no chills or sweats OBJ: vitals: no fever here so far, otherwise stable now card monitor: a fib today with mild tachycardia exam: alert oriented skin warm dry good color resps easy lungs clear heart regular abd nl no edema joints nl mentation now normal labs reviewed CXs no growth to date Objective: Vital Signs Temp Pulse Resp BP Pulse Ox 37.1 C 111 H 34 H 113/81 H 99 05/30/17 11:42 05/30/17 11:42 05/30/17 11:42 05/30/17 11:42 05/30/17 11:42 Laboratory Results 05/29/17 05:20 05/30/17 06:04 05/29/17 05/30/17 05/31/17 06:59 06:59 06:59 Intake Total 5400 2870 Output Total 100 803 Balance 5300 2067 PT 17.6 SEC (12.0-15.0) H 05/29/17 05:20 INR 1.45 (0.83-1.16) H 05/29/17 05:20 - Time Spent With Patient Time Spent with Patient: greater than 35 minutes Time Spent with Patient: Greater than 35 minutes spent on this patients care, greater than 50% of time spent counseling, educating, and coordinating care regarding the above mentioned plan. ICD10 Worksheet Patient Problems: Problems Problem Status Onset Fever Acute Hyponatremia Acute Renal insufficiency Acute Severe sepsis Acute Ankle fracture, left Acute Atrial fib/flutter, transient Acute Fracture of phalanx of left foot, closed Acute
[2017-05-31] MEDS: PIPERACILLIN/TAZO 3.375 GM/DEX 50 ML IV SCH ×4 (04:20→22:53)
[2017-05-31] MEDS ORDERED: POTASSIUM CL 10 MEQ TAB PO ONE ×2 (07:53→18:47)
[2017-05-31] MEDS: APIXABAN 5 MG TAB PO SCH ×2 (08:51→21:29)
[2017-05-31] MEDS: LEVOTHYROXINE 88 MCG TAB PO SCH (08:51)
[2017-05-31] MEDS: ASPIRIN EC 81 MG TAB PO SCH (08:51)
[2017-05-31] MEDS ORDERED: FLU VACC QS 2017-18 (3YR+)/PF 0.5 ML SYR (FLUARIX QUAD) IM ONE (10:14)
[2017-05-31] MEDS: Fluticasone/Vilanterol [Breo Ellipta 100-25 Mcg Inh] 1 PUFFS IH SCH (10:30)
[2017-05-31] MEDS: INSULIN LISPRO 100 UNIT/ML SC SCH ×3 (11:02→18:48)
[2017-05-31] MEDS: NS 1,000 ML IV SCH (11:13)
[2017-05-31] MEDS ORDERED: NS 1,000 ML IV ONE (12:21)
[2017-05-31] MEDS ORDERED: MIDAZOLAM 2 MG/2 ML VIAL IVP ONE (14:27)
[2017-05-31] MEDS ORDERED: fentaNYL 100 MCG/2 ML INJ IVP ONE (14:27)
[2017-05-31] MEDS ORDERED: BENZOCAINE UNIT DOSE SPRAY HURRICAINE MM ONE (14:27)
[2017-05-31] MEDS ORDERED: NS 500 ML IV ONE (14:27)
[2017-05-31] MEDS ORDERED: fentaNYL 100 MCG/2 ML INJ ONE (15:03)
[2017-05-31] MEDS ORDERED: MIDAZOLAM 2 MG/2 ML VIAL ONE (15:03)
--- NOTE | 2017-05-31 15:05 | PDHPUP ---
History & Physical Update H&P update statement: This history and physical update is based on an assessment of the patient which was completed after admission or registration (within 24 hours), but prior to the surgery/procedure. H&P update: H&P reviewed & patient examined, no change in patient's condition since H&P completed
--- NOTE | 2017-05-31 15:07 | PDPROPOC ---
Sedation Plan of Care Sedation Plan of Care: vital signs stable, mental status noted, patient educated of risks, benefits, alternatives, patient can tolerate sedation ASA Classification: ASA 2 Planned drugs: fentanyl, midazolam Mallampati Score: Class 2 Mallampati Reference Image: Patient passed 3-3-2 rule?: Yes
--- NOTE | 2017-05-31 17:03 | ECHO ---
[email or web address] [address] [address] Main: [phone] Fax: Transesophageal Echocardiography Name: RUTH BATISTA MR#: [id number] Study Date: 05/31/2017 Study Time: 03:02 PM Date of : 1940 Age: 76 year(s) Height: ( ) Weight: ( ) BSA: Gender: Female Examination: MARILIN Indication: sepsis, r/o vegetation Image Quality: Contrast: I.V. dose of agitated saline Requested by: Sendy Angelo Heart Rate: Rhythm: Atrial fibrillation BP: / Procedure Staff Straddle Truck Driver: Kourtney Corcoran Reading Physician: Konrad Prasad Requesting Provider: Mike Villalpando MARILIN Exam Details Contrast: I.V. dose of agitated saline Conclusions: Normal size left ventricle. Normal global systolic LV function. No thrombus in left appendage. The mitral valve is normal in appearance. Mild mitral valve regurgitation is present. There is no mitral valve vegetation. Mildly calcific chordea. The aortic valve is tri-leaflet. Aortic sclerosis is present. Trivial to mild aortic valve regurgitation. There is no aortic valve vegetation. The tricuspid valve is normal in appearance and function. Mild tricuspid regurgitation is present. No tricuspid valve vegetation. An agitated saline study was performed and was positive for intracardiac shunting. Bubble study was miinimally positive suggestive of a small patent foramen ovale. Measurements: Chambers Valvular Assessment AV/MV Valvular Assessment TV/PV Normal Normal Normal Name Value Range Name Value Range Name Value Range Additional Measurements: Patient: RUTH BATISTA Study Date: 05/31/2017 Page 1 of 2 03:02 PM Findings: Left Ventricle: Normal size left ventricle. Normal global systolic LV function. Left Atrium: An agitated saline study was performed and was positive for intracardiac shunting. Left Atrial Appendage: No thrombus in left appendage. Mitral Valve: The mitral valve is normal in appearance. Mild mitral valve regurgitation is present. There is no mitral valve vegetation. Mildly calcific chordea. Aortic Valve: The aortic valve is tri-leaflet. Aortic sclerosis is present. Trivial to mild aortic valve regurgitation. There is no aortic valve vegetation. Tricuspid Valve: The tricuspid valve is normal in appearance and function. Mild tricuspid regurgitation is present. No tricuspid valve vegetation. Pulmonic Valve: Pulmonary valve not well visualized. Mild pulmonic valve regurgitation is noted. Pericardium: No pericardial effusion. l1n (No Signature Object) Patient: RUTH BATISTA Study Date: 05/31/2017 Page 2 of 2 03:02 PM [id number]
--- NOTE | 2017-05-31 17:03 | ECHO ---
[email or web address] [address] Main: [phone] Fax: Transesophageal Echocardiography Name: RUTH BATISTA MR#: [id number] Study Date: 05/31/2017 Study Time: 03:02 PM Date of : 1940 Age: 76 year(s) Height: ( ) Weight: ( ) BSA: Gender: Female Examination: MARILIN Indication: sepsis, r/o vegetation Image Quality: Contrast: I.V. dose of agitated saline Requested by: Sendy Angelo Heart Rate: Rhythm: Atrial fibrillation BP: / Procedure Staff Glove Pairer: Kourtney Corcoran Reading Physician: Konrad Prasad Requesting Provider: Mike Villalpando MARILIN Exam Details Contrast: I.V. dose of agitated saline Conclusions: Normal size left ventricle. Normal global systolic LV function. No thrombus in left appendage. The mitral valve is normal in appearance. Mild mitral valve regurgitation is present. There is no mitral valve vegetation. Mildly calcific chordea. The aortic valve is tri-leaflet. Aortic sclerosis is present. Trivial to mild aortic valve regurgitation. There is no aortic valve vegetation. The tricuspid valve is normal in appearance and function. Mild tricuspid regurgitation is present. No tricuspid valve vegetation. An agitated saline study was performed and was positive for intracardiac shunting. Bubble study was miinimally positive suggestive of a small patent foramen ovale. Measurements: Chambers Valvular Assessment AV/MV Valvular Assessment TV/PV Normal Normal Normal Name Value Range Name Value Range Name Value Range Additional Measurements: Patient: RUTH BATISTA Study Date: 05/31/2017 Page 1 of 2 03:02 PM Findings: Left Ventricle: Normal size left ventricle. Normal global systolic LV function. Left Atrium: An agitated saline study was performed and was positive for intracardiac shunting. Left Atrial Appendage: No thrombus in left appendage. Mitral Valve: The mitral valve is normal in appearance. Mild mitral valve regurgitation is present. There is no mitral valve vegetation. Mildly calcific chordea. Aortic Valve: The aortic valve is tri-leaflet. Aortic sclerosis is present. Trivial to mild aortic valve regurgitation. There is no aortic valve vegetation. Tricuspid Valve: The tricuspid valve is normal in appearance and function. Mild tricuspid regurgitation is present. No tricuspid valve vegetation. Pulmonic Valve: Pulmonary valve not well visualized. Mild pulmonic valve regurgitation is noted. Pericardium: No pericardial effusion. l1n (No Signature Object) Patient: RUTH BATISTA Study Date: 05/31/2017 Page 2 of 2 03:02 PM [id number]
--- NOTE | 2017-05-31 17:03 | ECHO ---
[email or web address] [address] [address] Main: [phone] Fax: Transesophageal Echocardiography Name: RUTH BATISTA MR#: [id number] Study Date: 05/31/2017 Study Time: 03:02 PM Date of : 1940 Age: 76 year(s) Height: ( ) Weight: ( ) BSA: Gender: Female Examination: MARILIN Indication: sepsis, r/o vegetation Image Quality: Contrast: I.V. dose of agitated saline Requested by: Sendy Angelo Heart Rate: Rhythm: Atrial fibrillation BP: / Procedure Staff Senior Account Clerk: Kourtney Corcoran Reading Physician: Konrad Prasad Requesting Provider: Mike Villalpando MARILIN Exam Details Contrast: I.V. dose of agitated saline Conclusions: Normal size left ventricle. Normal global systolic LV function. No thrombus in left appendage. The mitral valve is normal in appearance. Mild mitral valve regurgitation is present. There is no mitral valve vegetation. Mildly calcific chordea. The aortic valve is tri-leaflet. Aortic sclerosis is present. Trivial to mild aortic valve regurgitation. There is no aortic valve vegetation. The tricuspid valve is normal in appearance and function. Mild tricuspid regurgitation is present. No tricuspid valve vegetation. An agitated saline study was performed and was positive for intracardiac shunting. Bubble study was miinimally positive suggestive of a small patent foramen ovale. Measurements: Chambers Valvular Assessment AV/MV Valvular Assessment TV/PV Normal Normal Normal Name Value Range Name Value Range Name Value Range Additional Measurements: Patient: RUTH BATISTA Study Date: 05/31/2017 Page 1 of 2 03:02 PM Findings: Left Ventricle: Normal size left ventricle. Normal global systolic LV function. Left Atrium: An agitated saline study was performed and was positive for intracardiac shunting. Left Atrial Appendage: No thrombus in left appendage. Mitral Valve: The mitral valve is normal in appearance. Mild mitral valve regurgitation is present. There is no mitral valve vegetation. Mildly calcific chordea. Aortic Valve: The aortic valve is tri-leaflet. Aortic sclerosis is present. Trivial to mild aortic valve regurgitation. There is no aortic valve vegetation. Tricuspid Valve: The tricuspid valve is normal in appearance and function. Mild tricuspid regurgitation is present. No tricuspid valve vegetation. Pulmonic Valve: Pulmonary valve not well visualized. Mild pulmonic valve regurgitation is noted. Pericardium: No pericardial effusion. l1n (No Signature Object) Patient: RUTH BATISTA Study Date: 05/31/2017 Page 2 of 2 03:02 PM [id number]
--- NOTE | 2017-05-31 18:27 | HOSPPROG ---
Hospitalist Progress Note Assessment/Plan: DIAGNOSES: -today new episode of paroxysmal A Fib w ongoing rapid rate -acute severe sepsis w organ failure is suspected -possible complicated UTI, no other source of infection identified so far (MARILIN with no vegetation, no other findings now to suggest endocarditis) -acute kidney injury -acute encephalopathy -doubt PE on home apixiban though I have seen this before -she is likely over-diuresed from home, aggravating her hypotension and organ failure -hypokalemia -generalized weakness and anorexia due to above -CT findings from yesterday to follow: -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 she has pyuria so it may be a complicated UTI. Do not think she has endocarditis PLANS: -continue empiric abx for suspected complicated UTI -add rate control med for her rapid a fib at this time -dvt prophylaxis covered by apixiban -follow cx's -replace K -should have f/u over time for aneurysm, pulm HTN, and be on skilled nursing preventive care for CAD SUBJ: still very weak, unchanged from yesterday still poor appetite no new localizing sxs no chills or sweats OBJ: vitals: no fever here so far, more tachycardic today card monitor: now with a fib HR 120s exam: alert oriented no peripheral endocarditis stigmata on exam (eyes, oroph., nails, skin) skin warm dry good color resps easy lungs clear heart regular abd nl no edema joints nl mentation now normal labs reviewed CXs no growth to date MARILIN done today, no valvular vegetations there was a ? of pfo on bubble study Objective: Vital Signs Temp Pulse Resp BP Pulse Ox 36.7 C 124 H 25 H 133/98 H 100 05/31/17 07:46 05/31/17 07:46 05/31/17 07:46 05/31/17 07:46 05/31/17 07:46 Laboratory Results 05/29/17 05:20 05/31/17 05:00 05/30/17 05/31/17 06/01/17 06:59 06:59 06:59 Intake Total 2870 1200 700 Output Total 803 200 Balance 2067 1200 500 PT 17.6 SEC (12.0-15.0) H 05/29/17 05:20 INR 1.45 (0.83-1.16) H 05/29/17 05:20 - Time Spent With Patient Time Spent with Patient: greater than 35 minutes Time Spent with Patient: Greater than 35 minutes spent on this patients care, greater than 50% of time spent counseling, educating, and coordinating care regarding the above mentioned plan. ICD10 Worksheet Patient Problems: Problems Problem Status Onset Fever Acute Hyponatremia Acute Renal insufficiency Acute Severe sepsis Acute Ankle fracture, left Acute Atrial fib/flutter, transient Acute Fracture of phalanx of left foot, closed Acute
[2017-05-31] MEDS ORDERED: POTASSIUM CL 20 MEQ TAB ONE (21:28)
[2017-05-31] MEDS: DILTIAZEM 30 MG TAB PO SCH (23:44)
[2017-06-01] MEDS: PIPERACILLIN/TAZO 3.375 GM/DEX 50 ML IV SCH ×4 (04:35→22:00)
[2017-06-01 04:54] LABS: PLATELET COUNT 72 10^3/uL (150-400)
[2017-06-01] MEDS: DILTIAZEM 30 MG TAB PO SCH ×3 (05:31→17:24)
[2017-06-01] MEDS ORDERED: POTASSIUM CL 10 MEQ TAB PO ONE ×3 (07:18→21:53)
[2017-06-01] MEDS: Fluticasone/Vilanterol [Breo Ellipta 100-25 Mcg Inh] 1 PUFFS IH SCH ×2 (08:40→10:02)
[2017-06-01] MEDS: ASPIRIN EC 81 MG TAB PO SCH (09:39)
[2017-06-01] MEDS: APIXABAN 5 MG TAB PO SCH ×2 (09:39→22:00)
[2017-06-01] MEDS: LEVOTHYROXINE 88 MCG TAB PO SCH (09:39)
[2017-06-01] MEDS: INSULIN LISPRO 100 UNIT/ML SC SCH ×3 (09:39→17:25)
--- NOTE | 2017-06-01 11:15 | ASMTCMCOM ---
CM Note CM Note Notes: Met with patient to discuss discharge planning. She said that she lives with her son and a roommate, both of whom are very helpful. She is independent at baseline and does not anticipate any discharge needs. She has not worked with PT/OT yet since she has been tranferring independently, but she did express interest in working with them later today since she has been feeling so fatigued. I put an order in for PT/OT. CM will follow for any discharge needs. Date Signed: 06/01/2017 11:14 AM Electronically Signed By:Zaira Reese RN
--- NOTE | 2017-06-01 17:31 | HOSPPROG ---
Hospitalist Progress Note Assessment/Plan: DIAGNOSES: -paroxysmal A Fib w rapid rate; heart rate now 100-110 on oral diltiazem and well tolerated -acute severe sepsis w organ failure is suspected, and now resolved -possible complicated UTI, no other source of infection identified so far (MARILIN with no vegetation, no other findings now to suggest endocarditis) -acute kidney injury improved -acute encephalopathy improved -doubt PE on home apixiban though I have seen this before -she was likely over-diuresed from home, aggravating her hypotension and organ failure at presentation -hypokalemia -generalized weakness and deconditioning, with limited ambulation -CT findings from yesterday to follow: -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 she has pyuria so it may be a complicated UTI. Do not think she has endocarditis. She will need ongoing therapies here and may potentially needs them if she does not regain strength shortly PLANS: -continue empiric abx for suspected complicated UTI -continue diltiazem for her rapid a fib at this time and may need to increase dose; is anticoagulated -dvt prophylaxis covered by apixiban -follow cx's -will recommend outpatient f/u over time for aneurysm, pulm HTN, and be on half-way preventive care for CAD SUBJ: still very weak, unchanged from yesterday still poor appetite no new localizing sxs no chills or sweats OBJ: vitals: no fever here so far, more tachycardic today card monitor: a fib HR now 100-110 exam: alert oriented no peripheral endocarditis stigmata on exam (eyes, oroph., nails, skin) skin warm dry good color resps easy lungs clear heart regular abd nl no edema joints nl mentation now normal CXs no growth to date Objective: Vital Signs Temp Pulse Resp BP Pulse Ox 36.7 C 97 20 120/75 98 06/01/17 16:00 06/01/17 17:24 06/01/17 16:00 06/01/17 16:00 06/01/17 16:00 Laboratory Results 06/01/17 04:30 06/01/17 04:30 10/06/01/17 06/02/17 06:59 06:59 06:59 Intake Total 1200 1120 1100 Output Total 200 100 Balance 8984 362 8432 PT 17.6 SEC (12.0-15.0) H 05/29/17 05:20 INR 1.45 (0.83-1.16) H 05/29/17 05:20 ICD10 Worksheet Patient Problems: Problems Problem Status Onset Fever Acute Hyponatremia Acute Renal insufficiency Acute Severe sepsis Acute Ankle fracture, left Acute Atrial fib/flutter, transient Acute Fracture of phalanx of left foot, closed Acute
[2017-06-02] MEDS: DILTIAZEM 30 MG TAB PO SCH ×5 (01:25→23:56)
[2017-06-02] MEDS: LEVOTHYROXINE 88 MCG TAB PO SCH (04:42)
[2017-06-02] MEDS: PIPERACILLIN/TAZO 3.375 GM/DEX 50 ML IV SCH ×4 (04:42→20:21)
[2017-06-02] MEDS ORDERED: POTASSIUM CL 10 MEQ TAB PO ONE (07:14)
[2017-06-02] MEDS: INSULIN LISPRO 100 UNIT/ML SC SCH ×3 (08:43→17:46)
[2017-06-02] MEDS: ASPIRIN EC 81 MG TAB PO SCH (09:09)
[2017-06-02] MEDS: APIXABAN 5 MG TAB PO SCH ×2 (09:10→20:21)
--- NOTE | 2017-06-02 11:19 | ASMTCMCOM ---
CM Note CM Note Notes: Chart reviewed. Met with pt to review dc poc. Pt and OT recommending SNF/Rehab. Patient declines at present as she would like to work with therapies here prior to making a decision. She is to transfer to PCU. CM to follow. Date Signed: 06/02/2017 11:18 AM Electronically Signed By:Soledad Guajardo RN
--- NOTE | 2017-06-02 18:46 | HOSPPROG ---
Hospitalist Progress Note Assessment/Plan: DIAGNOSES: -paroxysmal A Fib w rapid rate; heart rate now 100-110 on oral diltiazem and well tolerated -acute severe sepsis w organ failure is suspected, and now resolved -possible complicated UTI, no other source of infection identified so far (MARILIN with no vegetation, no other findings now to suggest endocarditis) -acute kidney injury improved -acute encephalopathy improved -doubt PE on home apixiban though I have seen this before -she was likely over-diuresed from home, aggravating her hypotension and organ failure at presentation -hypokalemia -generalized weakness and deconditioning, with limited ambulation -CT findings from yesterday to follow: -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 Could potentially be ready for discharge in 1-2 days There is still not a definitive finding to identify cause of her illness but infection w severe sepsis remains main suspect. she has pyuria so it may be a complicated UTI. Do not think she has endocarditis. She will need ongoing therapies here and may potentially needs them if she does not regain strength shortly PLANS: -continue empiric abx for suspected complicated UTI -continue diltiazem for her rapid a fib at this time and may need to increase dose; is anticoagulated -dvt prophylaxis covered by apixiban -follow cx's -will recommend outpatient f/u over time for ascending aortic aneurysm, pulm HTN , and be on ad terminal makeup operator preventive care for CAD (all CT findings here) SUBJ: stronger and better energy today than yesterday better appetite no new localizing sxs no chills or sweats OBJ: vitals: no fever here so far, more tachycardic today card monitor: a fib HR now 100-110 exam: alert oriented no peripheral endocarditis stigmata on exam (eyes, oroph., nails, skin) skin warm dry good color resps easy lungs clear heart regular abd nl no edema joints nl mentation now normal CXs no growth to date Objective: Vital Signs Temp Pulse Resp BP Pulse Ox 37.1 C 98 24 H 145/83 H 94 06/02/17 15:38 06/02/17 17:42 06/02/17 15:38 06/02/17 15:38 06/02/17 15:38 Laboratory Results 06/01/17 04:30 06/02/17 18:10 06/01/17 06/02/17 06/03/17 06:59 06:59 06:59 Intake Total 1120 1200 1325 Output Total 200 300 600 Balance 920 900 725 PT 17.6 SEC (12.0-15.0) H 05/29/17 05:20 INR 1.45 (0.83-1.16) H 05/29/17 05:20 ICD10 Worksheet Patient Problems: Problems Problem Status Onset Fever Acute Hyponatremia Acute Renal insufficiency Acute Severe sepsis Acute Ankle fracture, left Acute Atrial fib/flutter, transient Acute Fracture of phalanx of left foot, closed Acute
[2017-06-03] MEDS: PIPERACILLIN/TAZO 3.375 GM/DEX 50 ML IV SCH ×2 (04:15→10:05)
[2017-06-03] MEDS: DILTIAZEM 30 MG TAB PO SCH ×4 (05:28→23:56)
[2017-06-03] MEDS: LEVOTHYROXINE 88 MCG TAB PO SCH (05:30)
[2017-06-03] MEDS: INSULIN LISPRO 100 UNIT/ML SC SCH ×3 (07:46→17:33)
[2017-06-03] MEDS: ASPIRIN EC 81 MG TAB PO SCH (08:19)
[2017-06-03] MEDS: Fluticasone/Vilanterol [Breo Ellipta 100-25 Mcg Inh] 1 PUFFS IH SCH (08:19)
[2017-06-03] MEDS: APIXABAN 5 MG TAB PO SCH ×2 (08:19→21:20)
--- NOTE | 2017-06-03 10:54 | HOSPPROG ---
Hospitalist Progress Note Assessment/Plan: 76 y/o female new to my care with presenting with -acute severe sepsis w organ failure is suspected, and now resolved (unclear source) PCT trending down -will de-escalate zosyn to ctx and plan for transition to oral abx and dc home if continues to do well -paroxysmal A Fib w rapid rate; heart rate now 100-110 on oral diltiazem and well tolerated -possible complicated UTI, no other source of infection identified so far (MARILIN with no vegetation, no other findings now to suggest endocarditis) -acute kidney injury improved -acute encephalopathy improved -doubt PE on home apixiban though I have seen this before -she was likely over-diuresed from home, aggravating her hypotension and organ failure at presentation -hypokalemia -generalized weakness and deconditioning, with limited ambulation -CT findings from yesterday to follow: -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 denies fever or chills. no cough. no urinary complaints Objective: Vital Signs Temp Pulse Resp BP Pulse Ox 36.9 C 103 H 20 116/78 98 06/03/17 08:00 06/03/17 08:00 06/03/17 08:00 06/03/17 08:00 06/03/17 08:00 Laboratory Results 06/01/17 04:30 06/03/17 04:40 06/02/17 06/03/17 06/04/17 05:59 05:59 05:59 Intake Total 1100 1825 Output Total 100 1100 Balance 1000 725 PT 17.6 SEC (12.0-15.0) H 05/29/17 05:20 INR 1.45 (0.83-1.16) H 05/29/17 05:20 records reviewed Laboratory Tests 06/03/17 04:40 Procalcitonin 0.31 H - Physical Exam Constitutional: no apparent distress, appears nourished, not in pain Cardiovascular: regular rate and rhythym, no murmur, rub, or gallop Respiratory: no respiratory distress, no rales or rhonchi, clear to auscultation Gastrointestinal: normoactive bowel sounds, soft, non-tender abdomen, no palpable masses Skin: no rashes or abrasions, no fluctuance, no induration Neurologic: AAOx3, sensation intact bilaterally, CN II-XII Intact ICD10 Worksheet Patient Problems: Problems Problem Status Onset Ankle fracture, left Acute Fracture of phalanx of left foot, closed Acute Atrial fib/flutter, transient Acute Fever Acute Renal insufficiency Acute Hyponatremia Acute Severe sepsis Acute
--- NOTE | 2017-06-03 11:34 | ASMTCMCOM ---
CM Note CM Note Notes: Chart reviewed. Per PT and OT patient is making slow progress. Will needs HHC per therapy Discussed with patient and she is agreeable to Home Health Care. [facility]erral [facility] as patient states she has no preference. She is stable enough to transfer to PCU. Current plan of care; Home with [facility]. CM to follow. Date Signed: 06/03/2017 11:33 AM Electronically Signed By:Soledad Guajardo RN
--- NOTE | 2017-06-03 11:34 | ASMTCMCOM ---
CM Note CM Note Notes: Chart reviewed. Per PT and OT patient is making slow progress. Will needs HHC per therapy Discussed with patient and she is agreeable to Home Health Care. Referral made to [facility] as patient states she has no preference. She is stable enough to transfer to PCU. Current plan of care; Home with [facility]. CM to follow. Date Signed: 06/03/2017 11:33 AM Electronically Signed By:Soledad Guajardo RN
[2017-06-04] MEDS: DILTIAZEM 30 MG TAB PO SCH ×2 (05:26→13:13)
[2017-06-04] MEDS: LEVOTHYROXINE 88 MCG TAB PO SCH (05:26)
[2017-06-04] MEDS: INSULIN LISPRO 100 UNIT/ML SC SCH ×2 (08:13→13:19)
[2017-06-04] MEDS: Fluticasone/Vilanterol [Breo Ellipta 100-25 Mcg Inh] 1 PUFFS IH SCH (09:38)
[2017-06-04] MEDS: APIXABAN 5 MG TAB PO SCH (09:38)
[2017-06-04] MEDS: ASPIRIN EC 81 MG TAB PO SCH (09:38)
[2017-06-04 11:46] VITALS: RESP 26; TEMP 98.1; O2SAT 100
[2017-06-04 13:14] VITALS: BP 124/78; PULSE 113
--- NOTE | 2017-06-04 13:42 | GDS ---
[f rep st] DISCHARGE SUMMARY DISCHARGE DIAGNOSES: 1. Resolved acute severe sepsis of unclear etiology. 2. Paroxysmal atrial fibrillation, resolved. 3. Hospital complicated urinary tract infection. 4. Acute kidney injury, resolved. 5. Acute encephalopathy, resolved. 6. Hypokalemia, resolved. HOSPITAL COURSE AND STAY BY PROBLEM: 1. Severe sepsis: The patient presented to the hospital with fevers and altered mental status. A p rocalcitonin was done that was elevated. Initially UA did reveal pyuria; however, a urine culture wa s never sent. The patient was treated empirically with Zosyn and has improved throughout her stay. Blood cultures have not grown any organisms. It is suspected that her Karen septic picture on presenta tion was exacerbated by the fact that she was on very high dose of blood pressure medications includi ng 150 mg of metoprolol, hydralazine 100 mg t.i.d., losartan, and Lasix. Her blood pressure medicati ons have been held throughout her stay, and her blood pressures have actually been normotensive. On day of discharge, we will discharge her on a decreased dose of her medications. Please see the medic ation reconciliation below. 2. Paroxysmal atrial fibrillation: The patient apparently had a bout of paroxysmal atrial fibrillat ion while she was in the ICU. She was started on oral diltiazem. Currently, she is in sinus rhythm. She presents with a history of atrial fibrillation and had been on Eliquis, which will be continued on discharge. PHYSICAL EXAMINATION: VITAL SIGNS: Blood pressure 129/92, pulse of 91, respiratory rate 22, O2 satu ration 98% on 2 L, temperature afebrile. GENERAL: In no acute distress. HEART: S1, S2. LUNGS: C lear. ABDOMEN: Soft. EXTREMITIES: No edema. LABORATORY DATA: Pertinent labs and studies done during this hospital stay: Blood cultures no growt h. Echocardiogram done 05/28/2017, refer to report. CT of the chest, abdomen, and pelvis done 05/28, refer to report. Transesophageal echo done 05/31/2017, refer to report. DISCHARGE MEDICATIONS: Please refer to discharge medication reconciliation in [facility] for full deta ils. Below is a preliminary list. 1. Hydralazine was discontinued. 2. Furosemide was discontinued. 3. Metoprolol was decreased to 50 mg p.o. daily from 150 mg p.o. daily. All other home medications were continued at their usual home dosages. DISCHARGE INSTRUCTIONS: The patient will be discharged from the hospital where she was instructed to follow up with her primary care provider in the next week. She will need close monitoring of her bl ood pressure and possible up titration of her medications as needed for hypertension. She should fol low up with Cardiology regarding her atrial fibrillation. She was instructed to seek medical attenti on if she develops recurrent fevers or any other signs of infection. Greater than 30 minutes were spent on the discharge of this patient. /[id number]/MODL
--- NOTE | 2017-06-04 14:25 | ASMTCMCOM ---
CM Note CM Note Notes: Pt ready for DC today. [facility] alerted. Date Signed: 06/04/2017 02:24 PM Electronically Signed By:Valerie Arguello LCSW
--- NOTE | 2017-06-04 14:25 | ASMTCMCOM ---
CM Note CM Note Notes: Pt ready for DC today. [facility] alerted. Date Signed: 06/04/2017 02:24 PM Electronically Signed By:Valerie Arguello LCSW
--- NOTE | 2017-06-04 14:25 | PDIAF ---
- Diagnosis Diagnosis: sepsis Code Status: Full Code - Medication Management Discharge Medications: Medications to Continue on Transfer Albuterol [Proventil Inhaler HFA (*)] 2 puffs IH Q2 PRN 10/19/13 [Last Taken Unknown] Losartan Potassium [Cozaar] 100 mg PO DAILY 10/19/13 [Last Taken 10/18/13] Montelukast Sodium [Singulair 10 mg (*)] 10 mg PO DAILY@1800 PRN 10/19/13 [Last Taken 10/18/13] metFORMIN HCL [Glucophage 500 mg (*)] 500 mg PO DAILY 10/19/13 [Last Taken 10/18] Apixaban [Eliquis] 5 mg PO BID 05/28/17 [Last Taken Unknown] Aspirin EC [Aspirin EC 81 mg (*)] 81 mg PO DAILY 05/28/17 [Last Taken Unknown] Fluticasone/Vilanterol [Breo Ellipta 100-25 Mcg INH] 1 puffs IN DAILY 05/28/17 [ Last Taken Unknown] Levothyroxine Sodium 88 mcg PO DAILY@06 05/28/17 [Last Taken Unknown] Potassium Chloride 20 meq PO DAILY 05/28/17 [Last Taken Unknown] Metoprolol Succinate Xr [Toprol Xl 50 mg (*)] 50 mg PO DAILY #30 tab.sr [Last Taken Unknown] Discharge Medications: Refer to the Discharge Home Medication list for PRN reason. - Orders Services needed: Physical Therapy, Occupational Therapy Diet Recommendation: no restrictions on diet Diet Texture: Regular Texture Diet - Follow Up Care Current Providers and Referrals: MELONIE SHAW [Primary Care Provider] - As per Instructions
--- NOTE | 2017-06-04 14:25 | ASMTCMCOM ---
CM Note CM Note Notes: Pt ready for DC today. [facility] alerted. Date Signed: 06/04/2017 02:24 PM Electronically Signed By:Valerie Arguello LCSW
--- NOTE | 2017-06-05 16:14 | ASDISCHSUM ---
Discharge Information Plan Status:Home with Home Health Medically Cleared to Leave:06/04/2017 Discharge Date:06/04/2017 03:00 PM D/C Disposition:[facility] Disposition:Home, Routine, Self-Care Projected Discharge Date:06/04/2017 03:00 PM Transportation at D/C:Family Discharge Delay Reason: Follow-Up Date:06/04/2017 03:00 PM Discharge Slot: Final Diagnosis: Placement Information Patient Contact Information Contact Name:VÍCTOR Relationship:Son Address:[address] Work Phone: City:[place] Alternate Phone: [facility]/Zip Code:[place] [address] Email: Financial Information Financial Class:Medicare Advantage Plans Primary Plan Desc:[facility] ADVANTAGE [facility] Primary Plan Number:[id number] Secondary Plan Desc: Secondary Plan Number: Assessment Information [facility] CM Progress Note CM Note CM Note Notes: 76 year old female admitted for sepsis-cold infection?, hyponatremia, renal insufficiency. She has a hx of asthma/COPD, DM, Obesity, Respiratory failure-2 lits O2, HTN, Hypothyroid, Afib, Hypotensive, Bilateral hernia repair. RN reports that patient is very weak. Therapies need to evaluate for discharge needs. CM to follow Date Signed: 05/29/2017 11:55 AM Electronically Signed By:Eva Matthews LCSW [facility] CM Progress Note CM Note CM Note Notes: Met with patient to discuss discharge planning. She said that she lives with her son and a roommate, both of whom are very helpful. She is independent at baseline and does not anticipate any discharge needs. She has not worked with PT/OT yet since she has been tranferring independently, but she did express interest in working with them later today since she has been feeling so fatigued. I put an order in for PT/OT. CM will follow for any discharge needs. Date Signed: 06/01/2017 11:14 AM Electronically Signed By:Zaira Reese RN [facility] CM Progress Note CM Note CM Note Notes: Chart reviewed. Met with pt to review dc poc. Pt and OT recommending SNF/Rehab. Patient declines at present as she would like to work with therapies here prior to making a decision. She is to transfer to PCU. CM to follow. Date Signed: 06/02/2017 11:18 AM Electronically Signed By:Soledad Guajardo RN [facility]AC[facility] Length of stay for Answers: 4-6 days current admission Acuity / Level of Care Answers: Was the patient admitted to hospital via the emergency department? Yes: Comorbidities - select Answers: Diabetes without all that apply complications Chronic pulmonary disease Emergency dept visits in Answers: 1 last 6 months Score: 11 Date Signed: 06/02/2017 11:21 AM Electronically Signed By:Soledad Guajardo RN [facility] Progress Note CM Note CM Note Notes: Chart reviewed. Per PT and OT patient is making slow progress. Will needs HHC per therapy Discussed with patient and she is agreeable to Home Health Care. Referral made to [facility] as patient states she has no preference. She is stable enough to transfer to PCU. Current plan of care; Home with [facility]. CM to follow. Date Signed: 06/03/2017 11:33 AM Electronically Signed By:Soledad Guajardo RN [facility] CM Progress Note CM Note CM Note Notes: Pt ready for DC today. [facility] alerted. Date Signed: 06/04/2017 02:24 PM Electronically Signed By:Valerie Arguello LCSW Intervention Information
--- NOTE | 2017-06-05 16:14 | ASDISCHSUM ---
Discharge Information Plan Status:Home with Home Health Medically Cleared to Leave:06/04/2017 Discharge Date:06/04/2017 03:00 PM D/C Disposition:Home Health Service [facility] D/C Disposition:Home, Routine, Self-Care Projected Discharge Date:06/04/2017 03:00 PM Transportation at D/C:Family Discharge Delay Reason: Follow-Up Date:06/04/2017 03:00 PM Discharge Slot: Final Diagnosis: Placement Information Patient Contact Information Contact Name:VÍCTOR Relationship:Son Address:[address] Work Phone: City:[place] Alternate Phone: [facility]/Zip Code:[place] [address] Email: Financial Information Financial Class:Medicare Advantage Plans Primary Plan Desc:[facility] ADVANTAGE [facility] Primary Plan Number:[id number] Secondary Plan Desc: Secondary Plan Number: Assessment Information [facility] CM Progress Note CM Note CM Note Notes: 76 year old female admitted for sepsis-cold infection?, hyponatremia, renal insufficiency. She has a hx of asthma/COPD, DM, Obesity, Respiratory failure-2 lits O2, HTN, Hypothyroid, Afib, Hypotensive, Bilateral hernia repair. RN reports that patient is very weak. Therapies need to evaluate for discharge needs. CM to follow Date Signed: 05/29/2017 11:55 AM Electronically Signed By:Eva Matthews LCSW [facility] CM Progress Note CM Note CM Note Notes: Met with patient to discuss discharge planning. She said that she lives with her son and a roommate, both of whom are very helpful. She is independent at baseline and does not anticipate any discharge needs. She has not worked with PT/OT yet since she has been tranferring independently, but she did express interest in working with them later today since she has been feeling so fatigued. I put an order in for PT/OT. CM will follow for any discharge needs. Date Signed: 06/01/2017 11:14 AM Electronically Signed By:Zaira Reese RN [facility] CM Progress Note CM Note CM Note Notes: Chart reviewed. Met with pt to review dc poc. Pt and OT recommending SNF/Rehab. Patient declines at present as she would like to work with therapies here prior to making a decision. She is to transfer to PCU. CM to follow. Date Signed: 06/02/2017 11:18 AM Electronically Signed By:Soledad Guajardo RN [facility] Length of stay for Answers: 4-6 days current admission Acuity / Level of Care Answers: Was the patient admitted to hospital via the emergency department? Yes: Comorbidities - select Answers: Diabetes without all that apply complications Chronic pulmonary disease Emergency dept visits in Answers: 1 last 6 months Score: 11 Date Signed: 06/02/2017 11:21 AM Electronically Signed By:Soledad Guajardo RN [facility] Progress Note CM Note CM Note Notes: Chart reviewed. Per PT and OT patient is making slow progress. Will needs HHC per therapy Discussed with patient and she is agreeable to Home Health Care. Referral made to [facility] as patient states she has no preference. She is stable enough to transfer to PCU. Current plan of care; Home with [facility]. CM to follow. Date Signed: 06/03/2017 11:33 AM Electronically Signed By:Soledad Guajardo RN [facility] CM Progress Note CM Note CM Note Notes: Pt ready for DC today. [facility] alerted. Date Signed: 06/04/2017 02:24 PM Electronically Signed By:Valerie Arguello LCSW Intervention Information
--- NOTE | 2017-06-05 16:14 | ASDISCHSUM ---
Discharge Information Plan Status:Home with Home Health Medically Cleared to Leave:06/04/2017 Discharge Date:06/04/2017 03:00 PM D/C Disposition:Home Health Service [facility] D/C Disposition:Home, Routine, Self-Care Projected Discharge Date:06/04/2017 03:00 PM Transportation at D/C:Family Discharge Delay Reason: Follow-Up Date:06/04/2017 03:00 PM Discharge Slot: Final Diagnosis: Placement Information Patient Contact Information Contact Name:VÍCTOR Relationship:Son Address:[address] Work Phone: City:[place] Alternate Phone: [facility]/Zip Code:[place] [address] Email: Financial Information Financial Class:Medicare Advantage Plans Primary Plan Desc:[facility] ADVANTAGE [facility] Primary Plan Number:[id number] Secondary Plan Desc: Secondary Plan Number: Assessment Information [facility] CM Progress Note CM Note CM Note Notes: 76 year old female admitted for sepsis-cold infection?, hyponatremia, renal insufficiency. She has a hx of asthma/COPD, DM, Obesity, Respiratory failure-2 lits O2, HTN, Hypothyroid, Afib, Hypotensive, Bilateral hernia repair. RN reports that patient is very weak. Therapies need to evaluate for discharge needs. CM to follow Date Signed: 05/29/2017 11:55 AM Electronically Signed By:Eva Matthews LCSW [facility] CM Progress Note CM Note CM Note Notes: Met with patient to discuss discharge planning. She said that she lives with her son and a roommate, both of whom are very helpful. She is independent at baseline and does not anticipate any discharge needs. She has not worked with PT/OT yet since she has been tranferring independently, but she did express interest in working with them later today since she has been feeling so fatigued. I put an order in for PT/OT. CM will follow for any discharge needs. Date Signed: 06/01/2017 11:14 AM Electronically Signed By:Zaira Reese RN [facility] CM Progress Note CM Note CM Note Notes: Chart reviewed. Met with pt to review dc poc. Pt and OT recommending SNF/Rehab. Patient declines at present as she would like to work with therapies here prior to making a decision. She is to transfer to PCU. CM to follow. Date Signed: 06/02/2017 11:18 AM Electronically Signed By:Soledad Guajardo RN [facility] Length of stay for Answers: 4-6 days current admission Acuity / Level of Care Answers: Was the patient admitted to hospital via the emergency department? Yes: Comorbidities - select Answers: Diabetes without all that apply complications Chronic pulmonary disease Emergency dept visits in Answers: 1 last 6 months Score: 11 Date Signed: 06/02/2017 11:21 AM Electronically Signed By:Soledad Guajardo RN [facility] Progress Note CM Note CM Note Notes: Chart reviewed. Per PT and OT patient is making slow progress. Will needs HHC per therapy Discussed with patient and she is agreeable to Home Health Care. Referral made to [facility] as patient states she has no preference. She is stable enough to transfer to PCU. Current plan of care; Home with [facility]. CM to follow. Date Signed: 06/03/2017 11:33 AM Electronically Signed By:Soledad Guajardo RN [facility] CM Progress Note CM Note CM Note Notes: Pt ready for DC today. [facility] alerted. Date Signed: 06/04/2017 02:24 PM Electronically Signed By:Valerie Arguello LCSW Intervention Information
== END 2017-06-04 15:00 | disposition home health service (06) | DRG 871 ==
LOC: OBSVTOIN 19:51 → F2N 22:20
PROVIDERS: ADMIT Student in an Organized Health Care Education/Training Program; ATTEND Family Medicine
PROC: B246ZZ4 Ultrasonography of Right and Left Heart, Transesophageal (ICD-10-PCS; 2017-05-29)
PROC: B246ZZ4 Ultrasonography of Right and Left Heart, Transesophageal (ICD-10-PCS; principal; 2017-05-31)
CPT/HCPCS: 97116-GP; 97162-GP; 97166-GO; 97535-GO; G0008; G8978-GP-CJ; G8979-GP-CI; G8987-GO-CJ; G8988-GO-CI; J0696; J1815; J2250; J2543; J3010; J3370